=== PATIENT | female | born 1970 | race African-American/Black ===

== ENCOUNTER 2022-02-19 19:30 | Emergency (ER) | payer OTHER, SELFPAY ==
--- NOTE | ~2022-02-19 | US_ITS ---
EXAMINATION: US VENOUS WITH DOPPLER UPPER EXTREMITY, LEFT CLINICAL INFORMATION: Left upper extremity pain COMPARISON: None TECHNIQUE: Ultrasound of the upper extremity is performed using compression sonography and color and pulse Doppler flow with assessment of augmentation of flow. There is also imaging and Doppler assessment of the jugular and subclavian veins. Spectral analysis with color-flow imaging is performed. FINDINGS: Respiratory variation, normal compression, and augmented flow are noted throughout the upper extremity including the axillary, brachial, cubital, and radial and ulnar veins. There is normal flow in the internal jugular and subclavian veins. Thrombus is present in the left cephalic vein in the antecubital region at the site of a recent IV. There is no visible deep thrombophlebitis. US/US venous duplex UE LT IMPRESSION: No DVT demonstrated in the left upper extremity. Superficial thrombophlebitis present in the left cephalic vein in the antecubital fossa at the site of a recent IV.
--- NOTE | 2022-02-19 19:34 | ED_ITS ---
HPI - General Adult General Chief complaint: General Medical <ANTIONETTE Hamlin - Last Filed: 02/19/22 19:39> Stated complaint: blood clot? <ANTIONETTE Hamlin - Last Filed: 02/19/22 19:39> Time Seen by Provider: 02/19/22 20:37 <ANTIONETTE Hamlin - Last Filed: 02/19/22 19:39> Source: patient <Nilam Carrasquillo MD - Last Filed: 02/19/22 22:52> Mode of arrival: ambulatory <Nilam Carrasquillo MD - Last Filed: 02/19/22 22:52> History of Present Illness HPI narrative: 51-year-old female who is getting iron infusions and became concerned r egarding a swelling/not noted at the left inner elbow. Was not associated with any fever, chills, shortness of breath. <Nilam Carrasquillo MD - Last Filed: 02/19/22 22:52> Related Data Allergies/adverse reactions: Allergies Allergy/AdvReac Type Severity Reaction Status Date / Time No Known Allergies Allergy Verified 02/19/22 19:38 <ANTIONETTE Hamlin - Last Filed: 02/19/22 19:39> Review of Systems Review of Systems: Pertinent positives and negatives as stated in HPI <Nilam Carrasquillo MD - Last Filed: 02/19/22 22:52> PMFSH Past Medical History Source: nursing notes reviewed <Nilam Carrasquillo MD - Last Filed: 02/19/22 22:52> Social History Social History: Social History Advance Directives: No Advance Directives Information Provided: No Patient : No <ANTIONETTE Hamlin - Last Filed: 02/19/22 19:39> Physical Exam ED Vital Signs: Vital Signs - 24 hr 02/19/22 19:37 02/19/22 20:37 02/19/22 22:00 Temperature 98.0 F 98.3 F 98.3 F Pulse Rate 80 71 71 Respiratory Rate 18 20 Blood Pressure 114/78 120/84 120/84 Pulse Oximetry 96 100 96 Oxygen Delivery Method Room Air Room Air Room Air BMI result Body Mass Index 26.9 <ANTIONETTE Hamlin - Last Filed: 02/19/22 19:39> Vital Signs - 24 hr 02/19/22 19:37 02/19/22 20:37 02/19/22 22:00 Temperature 98.0 F 98.3 F 98.3 F Pulse Rate 80 71 71 Respiratory Rate 18 20 Blood Pressure 114/78 120/84 120/84 Pulse Oximetry 96 100 96 Oxygen Delivery Method Room Air Room Air Room Air BMI result Body Mass Index 26.9 VITAL SIGNS: Reviewed. GENERAL: Well developed, well nourished, in no acute distress. HEAD: Normocephalic/atraumatic EYES: PERRLA, EOMI LUNGS: Normal breath sounds. CARDIOVASCULAR: Regular rate and rhythm without noted murmurs ABDOMEN: Soft, non-tender, non-distended with bowel sounds. MUSCULOSKELETAL: No tenderness, deformities, or effusions noted on gross inspection. EXTREMITIES: No cyanosis, clubbing or edema; there is a small swelling/firm area at what appears to be the prior injection site. SKIN: Inspection of the skin reveals no rashes NEUROLOGIC: Alert and oriented x 3. Strength and sensation to light touch were grossly intact x 4. <Nilam Carrasquillo MD - Last Filed: 02/19/22 22:52> Course Course Course Narrative: RME-- 51yo F w/PMHx DVTs post no longer on AC, anemia on iron infusions, presenting to the ED c/o L arm pain and palpable lump x 4 days s/o IV placed to area for CT scan for colon issues. Denies SOB/CP Palpable superficial thrombophlebitis noted to lateral Left antecubital area with mild ttp. NV intact. No erythema/warmth Venous duplex US ordered <ANTIONETTE Hamlin - Last Filed: 02/19/22 19:39> Medical Decision Making Medical Decision Making MDM Narrative: This is a 51-year-old female with an ecchymotic and firm swelling at the left AC. This appears to be associated with prior IV site injection and I have low clinical suspicion for DVT. Ultrasound negative for DVT and I discussed the results with the patient at bedside and instructed her to use warm compresses and encouraged compression, I applied an Frantz wrap to her left upper extremity over the area and instructed her to have her next infusion conducted through the right upper extremity. <Nilam Carrasquillo MD - Last Filed: 02/19/22 22:52> Differential Diagnosis Differential Diagnoses: The differential diagnosis associated with the presentation includes <Nilam Carrasquillo MD - Last Filed: 02/19/22 22:52> Thrombophlebitis, subcutaneous infiltration, less likely DVT <Nilam Carrasquillo MD - Last Filed: 02/19/22 22:52> Radiology Impression Radiologist Impression: My interpretation is in agreement with radiology's impression of the imaging study. <Nilam Carrasquillo MD - Last Filed: 02/19/22 22:52> Discharge Plan Discharge Clinical Impression: Thrombophlebitis <ANTIONETTE Hamlin - Last Filed: 02/19/22 19:39> Patient Disposition: Home, Self-Care <ANTIONETTE Hamlin - Last Filed: 02/19/22 19:39> Instructions: Superficial Thrombophlebitis (ED) <ANTIONETTE Hamlin - Last Filed: 02/19/22 19:39> Additional Instructions: 1. Recommend that you use warm compresses with a combination of [id number] Tylenol/ibuprofen as needed for pain control. Also recommend elevation. Return to the ER for worsening symptoms. <ANTIONETTE Hamlin - Last Filed: 02/19/22 19:39> Referrals: Melonie Jeter MD [Primary Care Provider] - <ANTIONETTE Hamlin - Last Filed: 02/19/22 19:39> Interventions: ED Discharge Assessment Last Done: 02/19/22 22:48 <ANTIONETTE Hamlin - Last Filed: 02/19/22 19:39>
[2022-02-19 19:37] VITALS: BP 114/78; PULSE 80; RESP 18; TEMP 36.7; O2SAT 96; BMI 26.9
[2022-02-19 20:37] VITALS: BP 120/84; PULSE 71; TEMP 36.8; O2SAT 100
--- NOTE | 2022-02-19 20:56 | PC.NURSE ---
pt to ultrasound
[2022-02-19 22:00] VITALS: BP 120/84; PULSE 71; RESP 20; TEMP 36.8; O2SAT 96
== END 2022-02-19 22:48 | disposition home or self-care (01) ==
PROVIDERS: Emergency Provider Student in an Organized Health Care Education/Training Program; PCP Family Medicine
DX: I80.8 Phlebitis and thrombophlebitis of other sites (principal); M79.602 Pain in left arm
CPT/HCPCS: 93971; 99284